=== PATIENT | female | born 1985 | race Hispanic/Latino ===

== ENCOUNTER 2016-12-30 19:07 | Emergency (ER) | payer MEDICAID ==
[2016-12-30 19:07] VITALS: BMI 29.2
[2016-12-30 19:27] VITALS: BP 108/71; TEMP 98.3
--- NOTE | 2016-12-30 19:27 | ED PDOC ---
Arrival/HPI - General Chief Complaint: Anxiety Time Seen by Provider: 12/30/16 19:22 Historian: Patient - History of Present Illness Narrative History of Present Illness (Text): 12/30/16 19:27 Deann Irving is a 31 year old female, whose past medical history includes anxiety, asthma, gastritis, and depression, who presents to the ED complaining of intermittent abdominal pain for 1 month. Patient was seen at [facility] on 12/22/2016 for similar complaints, had CT Abdomen and Pelvis performed and diagnosed with uterine fibroids. Patient also complaining of anxiety tonight. Patient denies any fever, chills, chest pain, shortness of breath, nausea, vomiting, diarrhea, urinary symptoms, back pain, neck pain, headache, dizziness , or any other complaints. Time/Duration: Other (1 month) Symptom Onset: Gradual Symptom Course: Intermittent Activities at Onset: Rest, Light Context: Home Past Medical History - Provider Review Nursing Documentation Reviewed: Yes - Infectious Disease Hx of Infectious Diseases: None - Tetanus Immunization Tetanus Immunization: Up to Date - Cardiac Hx Cardiac Disorders: No - Pulmonary Hx Asthma: Yes - Neurological Hx Neurological Disorder: No Hx Seizures: No - HEENT Hx HEENT Disorder: No - Renal Hx Renal Disorder: No - Endocrine/Metabolic Hx Endocrine Disorders: No - Hematological/Oncological Hx Blood Disorders: No Hx Cancer: No - Integumentary Hx Dermatological Disorder: No - Musculoskeletal/Rheumatological Hx Musculoskeletal Disorders: No - Gastrointestinal Hx Gastritis: Yes - Genitourinary/Gynecological Hx Genitourinary Disorders: Yes Hx Sexually Transmitted Diseases: No Other/Comment: FIBROIDS - Psychiatric Hx Anxiety: Yes Hx Bipolar Disorder: Yes (Unknown) Hx Depression: Yes Hx Substance Use: Yes (RX, ALCOHOL) - Past Surgical History Past Surgical History: No Previous - Surgical History Other/Comment: COLONSCOPY - Anesthesia Hx Anesthesia: Yes - Suicidal Assessment Feels Threatened In Home Enviroment: No Family/Social History - Physician Review Nursing Documentation Reviewed: Yes Family/Social History: No Known Family HX Smoking Status: Former Smoker Hx Alcohol Use: No Hx Substance Use: Yes (RX, ALCOHOL) Hx Substance Use Treatment: No Allergies/Home Meds Allergies/Adverse Reactions: Allergies ciprofloxacin [From Cipro] Allergy (Verified 12/30/16 19:14) URTICARIA ciprofloxacin HCl [From Cipro] Allergy (Verified 12/30/16 19:14) URTICARIA ketorolac tromethamine [From Toradol] Allergy (Verified 12/30/16 19:14) SHORTNESS OF BREATH Review of Systems - Physician Review All systems were reviewed & negative as marked: Yes - Review of Systems Constitutional: Normal. absent: Fevers Eyes: Normal ENT: Normal Respiratory: Normal. absent: SOB, Cough Cardiovascular: Normal. absent: Chest Pain Gastrointestinal: Abdominal Pain. absent: Diarrhea, Nausea, Vomiting Genitourinary Female: Normal. absent: Dysuria, Frequency, Hematuria, Urine Output Changes Musculoskeletal: Normal. absent: Back Pain, Neck Pain Skin: Normal. absent: Rash Neurological: Normal. absent: Headache, Dizziness Endocrine: Normal Hemo/Lymphatic: Normal Psychiatric: Anxiety Physical Exam Vital Signs Reviewed: Yes Vital Signs Temp Pulse Resp BP Pulse Ox 12/30/16 19:26 98.3 F 107 H 22 108/71 100 Temperature: Afebrile Blood Pressure: Normal Pulse: Regular Respiratory Rate: Normal Appearance: Positive for: Well-Appearing, Non-Toxic, Comfortable Pain Distress: None Mental Status: Positive for: Alert and Oriented X 3 - Systems Exam Head: Present: Atraumatic, Normocephalic Pupils: Present: PERRL Extroacular Muscles: Present: EOMI Conjunctiva: Present: Normal Mouth: Present: Moist Mucous Membranes Neck: Present: Normal Range of Motion Respiratory/Chest: Present: Clear to Auscultation, Good Air Exchange. No: Respiratory Distress, Accessory Muscle Use Cardiovascular: Present: Regular Rate and Rhythm, Normal S1, S2. No: Murmurs Abdomen: Present: Normal Bowel Sounds. No: Tenderness, Distention, Peritoneal Signs Back: Present: Normal Inspection Upper Extremity: Present: Normal Inspection. No: Cyanosis, Edema Lower Extremity: Present: Normal Inspection. No: Edema Neurological: Present: GCS=15, CN II-XII Intact, Speech Normal Skin: Present: Warm, Dry, Normal Color. No: Rashes Psychiatric: Present: Alert, Oriented x 3, Normal Insight, Normal Concentration Medical Decision Making ED Course and Treatment: 12/30/16 19:27 Impression: 31 year old female complaining of abdominal pain for 1 month and anxiety today. Plan: -- EKG -- CT Abdomen and Pelvis -- Labs -- Urinalysis -- Klonopin -- Reassess and disposition Prior Visits: Notes and results from previous visits were reviewed. On 12/22/2016, pt was seen in the ED for abdominal pain, nausea, vomiting, and diarrhea. Pt had CT Abdomen and Pelvis performed which showed: Dominant fundal fibroid measured at 6.9 cm in maximal dimension. Pt was d/c home. Progress Notes: 12/30/16 19:50 Reviewed EKG, NSR at [address]-segment elevations or depressions, no T-wave inversions, normal intervals. 12/30/16 22:51 Reviewed radiology, CT Abdomen and Pelvis shows: 1. Probable fibroid uterus. Suggest ultrasound. 2. Incidental/non-acute findings are described above. RN reports patient is requesting pain medication. Pt appears to have chronic abdominal pain secondary to uterine fibroids. Pt with multiple visits for abdominal pain, most recent on 12/22/2016 at [facility] during which she was Morphine. Pt was informed regarding hospital policy on narcotic medication and told she will be not receiving any further pain medication. Pt instructed to f/u with pain management. Re-evaluation Time: 23:03 Reassessment Condition: Re-examined, Improved - Lab Interpretations Lab Results: 12/30/16 21:30 12/30/16 21:30 Lab Results 12/30/16 21:30: WBC 5.1, RBC 4.63, Hgb 14.4, Hct 41.5, MCV 89.6, MCH 31.1, MCHC 34.7, RDW 15.6 H, Plt Count 147, MPV 12.5 H, Gran % 66.5, Lymph % (Auto) 20.2 L , Coleman % (Auto) 12.7 H, Eos % (Auto) 0.2 L, Baso % (Auto) 0.4, Gran # 3.40, Lymph # 1.0 L, Coleman # 0.7 H, Eos # 0.0, Baso # 0.02, Sodium 135, Potassium 3.6, Chloride 96 L, Carbon Dioxide 25, Anion Gap 18, BUN 6 L, Creatinine 0.7, Est GFR ( Amer) > 60, Est GFR (Non-Af Amer) > 60, Random Glucose 91, Calcium 10.0, Total Bilirubin 1.1, AST 87 H, ALT 74 H, Alkaline Phosphatase 79, Total Protein 8.8 H, Albumin 4.4, Globulin 4.4, Albumin/Globulin Ratio 1.0 L I have reviewed the lab results: Yes - RAD Interpretation Narrative RAD Interpretations (Text): CT Abdomen and Pelvis shows: Limitations: Lack of intravenous contrast. Lower thorax: No acute findings. ABDOMEN: Liver: Fatty infiltration. Gallbladder and bile ducts: No calcified stones. No ductal dilation. Pancreas: Unremarkable. No ductal dilation. Spleen: No splenomegaly. Adrenals: No mass. Kidneys and ureters: No renal calculi. No hydronephrosis. Stomach and bowel: No definite mural thickening. No obstruction. Appendix: Normal caliber. No definite inflammation. PELVIS: Bladder: Unremarkable. No stones. Reproductive: Mildly enlarged, lobulated uterus. ABDOMEN and PELVIS: Intraperitoneal space: No significant fluid collection. No free air. Bones/joints: No acute fracture. Soft tissues: Tiny umbilical hernia containing fat. Vasculature: Unremarkable. No abdominal aortic aneurysm. Lymph nodes: No pathologically enlarged lymph nodes. IMPRESSION: 1. Probable fibroid uterus. Suggest ultrasound. 2. Incidental/non-acute findings are described above. Radiology Orders: 12/30/16 21:25 ABD & PELVIS W/O PO OR IV CONT [CT] [employer] Architect: Radiologist - EKG Interpretation Interpreted by ED Physician: Yes Type: 12 lead EKG - Medication Orders Current Medication Orders: Discontinued Medications Clonazepam (Klonopin) 1 mg PO STAT STA PRN Reason: Protocol Stop: 12/30/16 19:40 Last Admin: 12/30/16 20:38 Dose: 1 MG Behavioural Document 12/30/16 20:38 MMA (Rec: 12/30/16 20:38 MMA [email or web address] Maintenance Maintenance Dose No Nonmedicinal Nonmedicinal Interventions Redirect Behavior Behavior for Medication: Anxiety Lorazepam (Ativan) 0.5 mg IVP ONCE ONE PRN Reason: Protocol Stop: 12/30/16 21:19 Last Admin: 12/30/16 21:47 Dose: 0.5 MG Behavioural Document 12/30/16 21:47 [email or web address] (Rec[facility]30/16 21:48 [id number] Maintenance Maintenance Dose Yes Nonmedicinal Nonmedicinal Interventions Redirect Behavior Behavior for Medication: Anxiety IVP Administration Document 12/30/16 21:47 [email or web address] (Rec: 12/30/16 21:48 [id number] Charges for Administration # of IVP Administrations 1 Ondansetron HCl (Zofran Inj) 4 mg IVP STAT STA Stop: 12/30/16 20:17 Last Admin: 12/30/16 20:38 Dose: 4 MG IVP Administration Document 12/30/16 20:38 [facility] (Rec: 12/30/16 20:38 [email or web address]) Charges for Administration # of IVP Administrations 1 - Scribe Statement The provider has reviewed the documentation as recorded by the Scribe Maru Peralta All medical record entries made by the Scribe were at my direction and personally dictated by me. I have reviewed the chart and agree that the record accurately reflects my personal performance of the history, physical exam, medical decision making, and the department course for this patient. I have also personally directed, reviewed, and agree with the discharge instructions and disposition. Disposition/Present on Arrival - Present on Arrival Any Indicators Present on Arrival: No History of DVT/PE: No History of Uncontrolled Diabetes: No Urinary Catheter: No History of Decub. Ulcer: No History Surgical Site Infection Following: None - Disposition Have Diagnosis and Disposition been Completed?: Yes Diagnosis: Abdominal pain, Fibroid, uterine Disposition: HOME/ ROUTINE Disposition Time: 23:04 Patient Problems: Current Active Problems Problem Status Diagnosed Intractable cyclical vomiting without nausea Acute Condition: GOOD Discharge Instructions (ExitCare): Uterine Fibroids (ED) Prescriptions: Clonazepam [Klonopin] 1 mg PO DAILY #2 tab
[2016-12-30 21:51] LABS: ADD MANUAL DIFF? NO
[2016-12-30 21:57] LABS: BASO # 0.02 K/mm3 (0.0-2.0); BASO % 0.4 % (0.0-3.0); EOS % 0.2 % (1.5-5.0); GRAN % 66.5 % (50.0-68.0); HEMATOCRIT 41.5 % (36.0-48.0); LYMPH % 20.2 % (22.0-35.0); MEAN CELL VOLUME 89.6 fL (80.0-105.0); MEAN CORPUSCULAR HEMOGLOBIN 31.1 pg (25.0-35.0); MEAN CORPUSCULAR HGB CONC 34.7 g/dl (31.0-37.0); MEAN PLATELET VOLUME 12.5 fl (7.0-11.0); MONO # 0.7 (0.1-0.6); MONO % 12.7 % (1.0-6.0); PLATELET COUNT 147 10^3/uL (120.0-450.0); RED CELL DISTRIBUTION WIDTH 15.6 % (11.5-14.5); WHITE BLOOD COUNT 5.1 10^3/ul (4.5-11.0)
[2016-12-30 22:07] LABS: ALKALINE PHOSPHATASE 79 U/L (38-133); ALT/SGPT 74 U/L (7-56); AST/SGOT 87 U/L (15-39); BILIRUBIN,TOTAL 1.1 mg/dL (0.2-1.3); BLOOD UREA NITROGEN 6 mg/dL (7-21); CARBON DIOXIDE 25 mmol/L (21-33); CHLORIDE 96 mmol/L (98-107); GFR AFRICAN-AMERICAN > 60; GLUCOSE,RANDOM 91 mg/dL (70-110); POTASSIUM 3.6 mmol/L (3.6-5.0); SODIUM 135 mmol/L (132-148); TOTAL PROTEIN 8.8 g/dL (5.8-8.3)
--- NOTE | 2016-12-30 22:36 | CT ---
EXAM: CT Abdomen and Pelvis Without Intravenous Contrast CLINICAL HISTORY: 31 years old, female; Pain; Abdominal pain; Patient HX: Lower abdominal pain; Additional info: Abd pain TECHNIQUE: Axial computed tomography images of the abdomen and pelvis without intravenous contrast. This CT exam was performed using one or more of the following dose reduction techniques: automated exposure control, adjustment of the mA and/or kV according to patient size, and/or use of iterative reconstruction technique. Coronal and sagittal reformatted images were created and reviewed. COMPARISON: CT - ABD PELVIS W/O PO OR IV CONT 01/07/2016 7:21:30 PM FINDINGS: Limitations: Lack of intravenous contrast. Lower thorax: No acute findings. ABDOMEN: Liver: Fatty infiltration. Gallbladder and bile ducts: No calcified stones. No ductal dilation. Pancreas: Unremarkable. No ductal dilation. Spleen: No splenomegaly. Adrenals: No mass. Kidneys and ureters: No renal calculi. No hydronephrosis. Stomach and bowel: No definite mural thickening. No obstruction. Appendix: Normal caliber. No definite inflammation. PELVIS: Bladder: Unremarkable. No stones. Reproductive: Mildly enlarged, lobulated uterus. ABDOMEN and PELVIS: Intraperitoneal space: No significant fluid collection. No free air. Bones/joints: No acute fracture. Soft tissues: Tiny umbilical hernia containing fat. Vasculature: Unremarkable. No abdominal aortic aneurysm. Lymph nodes: No pathologically enlarged lymph nodes. IMPRESSION: 1. Probable fibroid uterus. Suggest ultrasound. 2. Incidental/non-acute findings are described above.
[2016-12-30 23:15] VITALS: PULSE 98; RESP 16; O2SAT 98
--- NOTE | 2016-12-31 08:44 | CARD ---
APPROVED REPORT EKG Measurement Heart [id number] PA [id number] [id number] <Conclusion> Normal sinus rhythm Possible Left atrial enlargement Borderline ECG
== END 2016-12-30 23:15 | disposition home or self-care (01) ==
LOC: ED 19:07
DX: R10.9 Unspecified abdominal pain (principal); D25.9 Leiomyoma of uterus, unspecified
CPT/HCPCS: 74176; 80053; 85025; 93005; 96374; 96375; 99283; J2060; J2405